=== PATIENT | female | born 1945 | race Caucasian/White ===

== ENCOUNTER 2023-10-20 | Emergency (ER) | payer BC ==
[2023-10-20] MEDS ORDERED: Lidocaine 1% w/Epinephrine 1:100K 20 ML VIAL ONE (01:43)
[2023-10-20] MEDS ORDERED: Boostrix 0.5 ML (Tdap) VIAL (>/=7 yrs of age) ONE (01:43)
== END 2023-10-20 03:10 | disposition home or self-care (01) ==
LOC: ERS
DX: S01.81XA Laceration without foreign body of other part of head, initial encounter (principal); Z23 Encounter for immunization; W01.10XA Fall on same level from slipping, tripping and stumbling with subsequent striking against unspecified object, initial encounter
CPT/HCPCS: 12013; 70450; 72125; 90471; 90715